=== PATIENT | female | born 1995 | race Caucasian/White ===

== ENCOUNTER 2019-03-28 18:04 | Emergency (ER) | payer BC ==
[2019-03-28 19:16] LABS: Appearance,Urine Clear (Clear); Bilirubin,Urine Negative (Negative); Blood,Urine Negative (Negative); Color,Urine Light Yellow; Glucose,Urine (UA) Negative (Negative); Ketones,Urine 1+ (Negative); Leukocyte Esterase,Urine Negative (Negative); Nitrite,Urine Negative (Negative); PH, Urine 5.5 (5.0-8.0); Protein,Urine Negative (Negative); Specific Gravity,Urine 1.006 (1.001-1.035); Urobilinogen,Urine <2.0 mg/dL (<2.0)
[2019-03-28 19:26] LABS: Amphetamine Screen,Urine Not Detected (NotDetected); Barbiturate Screen,Urine Not Detected (NotDetected); Benzodiazepines Screen,Urine Not Detected (NotDetected); Cocaine Screen,Urine Detected (NotDetected); Methadone Screen, Urine Not Detected (NotDetected); Opiate Screen,Urine Not Detected (NotDetected); Oxycodone Screen, Urine Not Detected (NotDetected); Phencyclidine Screen,Urine Not Detected (NotDetected); Tricyclic Antidepressant,Urine Not Detected (NotDetected); Urn Cannabinoid Scrn Not Detected (NotDetected)
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
[2019-03-28 20:39] VITALS: BP 118/76; PULSE 72; RESP 18; TEMP 98.8
== END 2019-03-28 20:30 | disposition home or self-care (01) ==
LOC: EC 18:04
DX: F32.9 Major depressive disorder, single episode, unspecified (principal); F10.10 Alcohol abuse, uncomplicated; F19.10 Other psychoactive substance abuse, uncomplicated; F17.200 Nicotine dependence, unspecified, uncomplicated; Z79.899 Other long term (current) drug therapy
CPT/HCPCS: 80306; 81003; 81025; 99285

== ENCOUNTER 2020-01-09 14:19 | Emergency (ER) | payer BC ==
[2020-01-09 14:25] VITALS: BP 124/77; PULSE 71; RESP 18; TEMP 98.5
--- NOTE | 2020-01-09 15:43 | ED ---
General Adult HPI - General Chief complaint: Needlestick/Exposure Stated complaint: needle stick/[facility] Time Seen by Provider: 01/09/20 15:23 Source: patient, RN notes reviewed Mode of arrival: ambulatory Limitations: no limitations - History of Present Illness Initial comments: 24-year-old female presents to the emergency department for a chief complaint of fingerstick injury. 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 The patient's service center manager sent her to the emergency department for blood draws. Post exposure prophylaxis for HIV was offered which patient and service center manager refused. Patient has no other complaints at this time including shortness of breath, chest pain, abdominal pain, nausea or vomiting, headache, or visual changes. - Related Data Home Medications Medication Instructions Recorded Confirmed Citalopram Hydrobromide [CeleXA] 40 mg PO HS 03/28/19 03/28/19 Allergies Allergy/AdvReac Type Severity Reaction Status Date / Time No Known Allergies Allergy Verified 01/09/20 14:25 Review of Systems ROS Statement: Those systems with pertinent positive or pertinent negative responses have been documented in the HPI. ROS Other: All systems not noted in ROS Statement are negative. Past Medical History Past Medical History: No Reported History History of Any Multi-Drug Resistant Organisms: None Reported Past Surgical History: No Surgical Hx Reported Past Psychological History: Depression Smoking Status: Current some day smoker Past Alcohol Use History: Occasional Past Drug Use History: None Reported General Exam Limitations: no limitations General appearance: alert, in no apparent distress Head exam: Present: atraumatic, normocephalic, normal inspection Eye exam: Present: normal appearance, PERRL, EOMI. Absent: scleral icterus, conjunctival injection, periorbital swelling ENT exam: Present: normal exam, mucous membranes moist Neck exam: Present: normal inspection. Absent: tenderness, meningismus, lymphadenopathy Respiratory exam: Present: normal lung sounds bilaterally. Absent: respiratory distress, wheezes, rales, rhonchi, stridor Cardiovascular Exam: Present: regular rate, normal rhythm, normal heart sounds. Absent: systolic murmur, diastolic murmur, rubs, gallop, clicks Extremities exam: Present: other (Nontraumatic left thumb. Normal appearance.) Course Vital Signs 01/09/20 14:22 Temperature 98.5 F Pulse Rate 71 Respiratory 18 Rate Blood Pressure 124/77 O2 Sat by Pulse 100 Oximetry Medical Decision Making - Medical Decision Making Fingerstick injury to the left thumb. Blood draw was performed. Patient refused post exposure prophylaxis. Patient will follow-up accordingly for repeat blood draw. Disposition Clinical Impression: Needlestick injury of finger Disposition: HOME SELF-CARE Condition: Good Instructions (If sedation given, give patient instructions): Needle Stick Injuries (ED) Additional Instructions: Please follow up with your doctor in one to 2 days. Return to the emergency room for any worsening symptoms. Is patient prescribed a controlled substance at d/c from ED?: No Referrals: Eric Tanner DO [Primary Care Provider] - 1-2 days Time of Disposition: 15:42
[2020-01-10 04:46] LABS: Hepatitis B Surface AB- Quant 3.5 mIU/mL; Hepatitis B Surface Antibody Non-Reactive (Non-Reactive); Hepatitis C IgG Antibody Non-Reactive (Non-Reactive)
[2020-01-10 21:36] LABS: HIV 2 AB Non-Reactive (Non-Reactive); HIV AB P24 Non-Reactive (Non-Reactive); HIV P24 AG Non-Reactive (Non-Reactive)
== END 2020-01-09 17:00 | disposition home or self-care (01) ==
LOC: EC 14:19
DX: S69.82XA Other specified injuries of left wrist, hand and finger(s), initial encounter (principal); Z77.21 Contact with and (suspected) exposure to potentially hazardous body fluids; F32.9 Major depressive disorder, single episode, unspecified; F17.200 Nicotine dependence, unspecified, uncomplicated; Z79.899 Other long term (current) drug therapy; W46.0XXA Contact with hypodermic needle, initial encounter; Y92.69 Other specified industrial and construction area as the place of occurrence of the external cause; Y99.0 Civilian activity done for income or pay
CPT/HCPCS: 36415; 86706; 86803; 87390; 99282

== ENCOUNTER → 2021-01-17 | Outpatient (CLI) | payer BC ==
--- NOTE | 2021-01-17 13:17 | US ---
EXAMINATION TYPE: US transvaginal DATE OF EXAM: 01/17/2021 COMPARISON: NONE CLINICAL HISTORY: IUD placement Z97.15. IUD placement TECHNIQUE: Transvaginal exam only per ordering physician. Date of LMP: 12/31/2020 EXAM MEASUREMENTS: Uterus: 6.8 x 3.2 x 4.1 cm Endometrial Stripe: 0.6 cm Right Ovary: 3.2 x 2.0 x 3.1 cm Left Ovary: 2.3 x 1.7 x 1.9 cm 1. Uterus: wnl 2. Endometrium: IUD appears in place within the endometrial canal 3. Right Ovary: 2.1 x 1.3 x 1.7cm complex cystic area 4. Left Ovary: multiple follicles 5. Bilateral Adnexa: wnl 6. Posterior cul-de-sac: wnl IMPRESSION: 1. IUD within the endometrial canal of the uterus. 2. Right ovarian cyst, complex. Follow-up is recommended.
== END | disposition home or self-care (01) ==
LOC: RADUSWWP 12:22
PROVIDERS: ATTEND Obstetrics & Gynecology Obstetrics
DX: Z30.431 Encounter for routine checking of intrauterine contraceptive device (principal); N83.201 Unspecified ovarian cyst, right side
CPT/HCPCS: 76830